=== PATIENT | male | born 1975 | race African-American/Black ===

== ENCOUNTER 2016-12-12 13:29 | Emergency (ER) | payer SELFPAY ==
[~2016-12-12] VITALS: Ht 188 cm; Wt 102.1 kg
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
[2016-12-12] MEDS ORDERED: IBUPROFEN 600 MG TABLET PO ONE ×2 (13:57→14:00)
--- NOTE | 2016-12-12 14:00 | NUR ---
PT MEDICATED ORDERED.
--- NOTE | 2016-12-12 14:05 | NUR ---
JOSE LUIS AT BS.
--- NOTE | 2016-12-12 14:54 | NUR ---
DPatient discharged to home in stable condition. Written and verbal after care instructions given. Patient verbalizes understanding of instruction. Pt ambulatory with a steady gait.
[2016-12-12 14:55] VITALS: BP 138/85
[2016-12-12] MEDS ORDERED: HYDROCODONE/APAP 10/325MG 1 EA TABLET PO ONE (15:00)
== END 2016-12-12 14:55 | disposition home or self-care (01) ==
LOC: ER 13:30
DX: S37.892A Contusion of other urinary and pelvic organ, initial encounter (principal); W18.30XA Fall on same level, unspecified, initial encounter; Y93.89 Activity, other specified; Y92.89 Other specified places as the place of occurrence of the external cause; Y99.8 Other external cause status; Z91.012 Allergy to eggs; F17.210 Nicotine dependence, cigarettes, uncomplicated
CPT/HCPCS: 72170-TC; A4606; Z7610